=== PATIENT | female | born 2000 | race Two or more races ===

== ENCOUNTER 2023-03-01 18:36 | Emergency (ER) | payer OTHER ==
[~2023-03-01] VITALS: Ht 152.4 cm; Wt 59.0 kg
[2023-03-01 20:53] LABS: HEMOGLOBIN 13.8 g/dL (12.0-15.00); MEAN CELL VOLUME 75.3 fL (80.00-100.00); MEAN CORPUSCULAR HEMOGLOBIN 26.6 pg (27.00-32.0); MEAN CORPUSCULAR HGB CONC 35.4 g/dl (32.0-36.0); PLATELET COUNT 374 K/uL (150-450); RED BLOOD COUNT 5.18 M/uL (4.00-6.00); RED CELL DISTRIBUTION WIDTH 16.2 % (11.5-14.5)
[2023-03-01 21:07] LABS: CALCIUM 9.4 mg/dL (8.5-10.1); CREATININE SERUM 0.58 mg/dL (0.55-1.02); GFR 127.72; POTASSIUM 4.03 mEq/L (3.5-5.1)
== END 2023-03-02 00:02 | disposition home or self-care (01) ==
LOC: ER 18:37
PROVIDERS: General Practice
DX: R51.9 Headache, unspecified (principal)